=== PATIENT | male | born 1940 ===

== ENCOUNTER 2024-12-28 18:22 | Outpatient (REF) | payer MEDICARE, SELFPAY ==
[2024-12-28 15:21] LABS: Abs Immature Grans 0.01 10^3/uL (0.0-0.06); Absolute Basophil Count 0.03 10^3/uL (0.0-0.2); Absolute Eosinophil Count 0.27 10^3/uL (0.0-0.7); Absolute Lymphocyte Count 1.95 10^3/uL (1.2-3.4); Absolute Monocyte Count 0.77 10^3/uL (0.1-0.8); Basophils % 0.5 %; Eosinophils % 4.8 %; HCT 40.8 % (40.0-50.0); HGB 13.4 g/dL (13.5-17.5); Immature Grans % 0.2 %; Lymphocytes % 34.6 %; MCH 30.7 pg (27.0-33.0); MCHC 32.8 % (32.0-36.0); MCV 93 fL (80-95); MPV 10.9 fL (8.0-11.0); Monocytes % 13.7 %; Neutrophils % 46.2 %; Platelet Count 198 10^3/uL (130-400); RBC 4.37 10^6/uL (4.36-5.78); RDW 14.6 % (11.8-14.1); RDW-SD 50.4 fL; WBC 5.63 10^3/uL (4.4-10.8)
[2024-12-28 15:55] LABS: Hemoglobin A1C 5.7 % (<5.7)
[2024-12-28 17:10] LABS: ALT 27 U/L (16-63); AST 20 U/L (15-37); Albumin 3.6 g/dL (3.4-5.0); Alkaline Phosphatase 142 U/L (46-116); BUN 21 mg/dL (7-18); Bilirubin, Total 0.58 mg/dL (0.2-1.0); Calcium 9.9 mg/dL (8.5-10.1); Chloride 107 mmol/L (98-107); Glucose 90 mg/dL (74-106); Potassium 4.4 mmol/L (3.5-5.1); Sodium 143 mmol/L (136-145); TSH 2.68 uIU/mL (0.36-3.74); Total Protein 7.1 g/dL (6.4-8.2); Vitamin B12 488 pg/mL (193-986)
== END 2024-12-28 18:23 | disposition home or self-care (01) ==
LOC: NCHCN 18:22
PROVIDERS: PCP Internal Medicine; Visit Provider Internal Medicine
DX: F03.918 Unspecified dementia, unspecified severity, with other behavioral disturbance (principal); Z13.29 Encounter for screening for other suspected endocrine disorder
CPT/HCPCS: 80053; 82607; 83036; 84443; 85025

== ENCOUNTER 2025-04-05 18:39 | Outpatient (REF) | payer MEDICARE, SELFPAY ==
[2025-04-06 20:45] LABS: Vitamin D 25 Total 37 ng/mL (30-100)
== END 2025-04-05 18:40 | disposition home or self-care (01) ==
LOC: LBN 18:39
PROVIDERS: PCP Internal Medicine; Visit Provider Internal Medicine
DX: E55.9 Vitamin D deficiency, unspecified (principal)
CPT/HCPCS: 82306

== ENCOUNTER 2025-06-10 20:57 | Outpatient (REF) | payer MEDICARE, SELFPAY | END 2025-06-10 20:58 | disposition home or self-care (01) | LOC: NCHCN 20:57 | PROVIDERS: PCP Internal Medicine; Visit Provider Internal Medicine | DX: F44.5 Conversion disorder with seizures or convulsions (principal); Z79.899 Other long term (current) drug therapy | CPT/HCPCS: 80188 ==

== ENCOUNTER 2025-08-09 16:55 | Outpatient (REF) | payer MEDICARE, SELFPAY ==
[2025-08-09 16:23] LABS: Anion Gap 12.2 mmol/L (3-11); BUN 19 mg/dL (7-18); CO2 23.8 mmol/L (21.0-32.0); Calcium 9.6 mg/dL (8.5-10.1); Chloride 107 mmol/L (98-107); Estimated GFR 65.38 (mL/min/1.73m2); Glucose 84 mg/dL (74-106); Potassium 4.3 mmol/L (3.5-5.1); Sodium 143 mmol/L (136-145)
== END 2025-08-09 16:56 | disposition home or self-care (01) ==
LOC: NCHCN 16:55
PROVIDERS: PCP Internal Medicine; Visit Provider Internal Medicine
DX: I10 Essential (primary) hypertension (principal)
CPT/HCPCS: 80048